=== PATIENT | male | born 1985 | race Caucasian/White ===

== ENCOUNTER 2020-05-14 15:24 | Emergency (ER) | payer OTHER ==
[~2020-05-14] VITALS: Ht 170.2 cm; Wt 61.2 kg
[~2020-05-14 15:24] MED LIST: NORCO 5-325 TA1 EACH PO
[2020-05-14] MEDS ORDERED: KEFLEX500 M1 PO (16:31)
[2020-05-14 16:54] VITALS: BP 140/86
== END 2020-05-14 16:55 | disposition home or self-care (01) ==
LOC: M.ERS 15:24
DX: S61.011A Laceration without foreign body of right thumb without damage to nail, initial encounter (principal); F17.210 Nicotine dependence, cigarettes, uncomplicated; W26.0XXA Contact with knife, initial encounter; Y93.89 Activity, other specified; Y92.89 Other specified places as the place of occurrence of the external cause; Y99.8 Other external cause status